=== PATIENT | female | born 1945 | race Caucasian/White ===

== ENCOUNTER 2020-07-12 11:15 | Outpatient (CLI) | payer MEDICARE, SELFPAY ==
--- NOTE | ~2020-07-12 | DEXA_ITS ---
Bone Density Report Name: Sofía Fletcher Age: 74 Sex: Female Ethnicity: White Date of : 1945 Indication: postmenopausal; height loss; prior fracture; hysterectomy; Referring Provider: Fadi Castro Study: Bone densitometry was performed. Exam Date: July 12, 2020 Accession number: [id number] Bone Density: Region BMD T-score Z-score Classification AP Spine (L2, L3, L4) 1.120 0.4 2.7 Normal Femoral Neck (Left) 0.625 -2.0 -0.1 Osteopenia Total Hip (Left) 0.805 -1.1 0.5 Osteopenia Total Hip Bilateral Avg 0.808 -1.1 0.6 Osteopenia Femoral Neck (Right) 0.704 -1.3 0.6 Osteopenia Total Hip (Right) 0.809 -1.1 0.6 Osteopenia World Health Organization criteria for BMD impression classify patients as: Normal (T-score at or above -1.0), Osteopenia (T-score between -1.0 and -2.5), or Osteoporosis (T-score at or below -2.5). 10-year Fracture Risk: FRAX not reported because: Prior hip or vertebral fracture Previous Exams: Region Exam Age BMD T-score BMD Change BMD Change Date g/cm2 vs Baseline vs Previous AP Spine(L2, L3, L4) 07/12/2020 74 1.120 0.4 0.025(2.2%)* 0.059(5.6%)* 02/16/2017 71 1.061 -0.2 -0.034(-3.1%)* -0.034(-3.1%)* 12/10/2014 69 1.095 0.1 Total Hip(Left) 07/12/2020 74 0.805 -1.1 -0.064(-7.4%)* -0.064(-7.4%)* 02/16/2017 71 0.869 -0.6 0.000(0.0%) 0.000(0.0%) 12/10/2014 69 0.869 -0.6 Total Hip(Right) 07/12/2020 74 0.809 -1.1 -0.042(-4.9%)* -0.026(-3.1%) 02/16/2017 71 0.835 -0.9 -0.016(-1.8%) -0.016(-1.8%) 12/10/2014 69 0.851 -0.7 *Denotes significance at 95% confidence level, LSC for AP Spine = 0.022 g/cm2, LSC for Total Hip = 0.027 g/cm2 Clinical Information Provided by Patient: Have had a previous hip or vertebral fracture Has had a low trauma fracture Has used the following medications: Fosamax (i.e. alendronate), Vitamin D, Calcium Has the following medical conditions: Hysterectomy Patient maximum height was 67 Menopause Age: 50 Drinks caffeinated beverages Onset of menses at age 11 Number of children 3 Impression: The patient has low bone mass, based on the Left Femoral Neck T-score. The patient has risk factors, including: previous fracture. The BMD for the Total Hip(Left) decreased, changing by -7.4% since the last DXA exam. Discussion: INCREASED RISK OF FRACTURE DUE TO HISTORY OF FRACTURE. The patient's previous fracture puts the patient at high risk of a future fractu
== END 2020-07-12 11:16 | disposition home or self-care (01) ==
PROVIDERS: PCP Family Medicine; Visit Provider Family Medicine
DX: Z13.820 Encounter for screening for osteoporosis (principal); M85.852 Other specified disorders of bone density and structure, left thigh; M85.851 Other specified disorders of bone density and structure, right thigh
CPT/HCPCS: 77080

== ENCOUNTER 2020-08-05 07:18 | Outpatient (CLI) | payer OTHER, SELFPAY ==
--- NOTE | ~2020-08-05 | US_ITS ---
US right upper quadrant INDICATION: Abdominal pain and diarrhea PROCEDURE: Realtime right upper abdominal ultrasound. COMPARISON: No prior studies for comparison. FINDINGS: The pancreas is normal without focal mass or pancreatic ductal dilation. Liver echotexture is increased, consistent with fatty infiltration. There is normal directional flow in the portal ve in. There are gallstones. No secondary findings to suggest cholecystitis. Common bile duct measures 5 mm . No sonographic Rasmussen's sign. IMPRESSION: 1: Cholelithiasis. 2: Fatty infiltration of the liver. Reviewed, dictated and finalized at location B. 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
== END 2020-08-05 07:19 | disposition home or self-care (01) ==
PROVIDERS: PCP Family Medicine; Visit Provider Family Medicine
DX: R10.9 Unspecified abdominal pain (principal); R19.5 Other fecal abnormalities; K80.20 Calculus of gallbladder without cholecystitis without obstruction; K76.0 Fatty (change of) liver, not elsewhere classified
CPT/HCPCS: 76705

== ENCOUNTER 2020-08-12 06:47 | Outpatient (CLI) | payer OTHER, SELFPAY ==
--- NOTE | ~2020-08-12 | NM_ITS ---
EXAMINATION: NM hepatobiliary wo pharm DATE: 08/12/2020 10:48 INDICATION: Unspecified abdominal pain COMPARISON: Ultrasound dated 08/05/2020 TECHNIQUE: 5.1 mCi Tc-99m mebrofenin (Choletec) was administered intravenously. Scintigraphic images of the abdomen were obtained for one hour. One hour and 4 hour delayed scintigrams were obtained in the anterior and right lateral projections. FINDINGS: There is normal clearance of radiotracer from the blood pool. There is homogeneous tracer u ptake by the liver. Activity progresses to the gallbladder with progressive accumulation of gallblad jack activity through 4 hours. The clearance from the liver is mildly delayed with common bile duct ac tivity accumulating at 25 minutes however the vast majority of hepatic activity has cleared on the 4 hour delayed images. There is however no appreciable bowel activity evident on the 4 hour delayed lionel ges at the majority of activity in the gallbladder. IMPRESSION: 1. Mildly delayed hepatic excretion of activity which accumulates in the gallbladder with no bowel a ctivity through 4 hours. This suggests obstruction either mechanical or functional at the distal comm on bile duct but either relatively recent, partial or intermittent with no decrease in initial hepati c uptake of activity and with no dilation of the gallbladder or intrahepatic biliary ductal dilation on the relatively recent prior ultrasound from 08/05/2020. Patient was also asymptomatic at the time of the study. Dr. Frey discussed these findings with Dr. Castro at 11:30 AM. Could consider furthe r evaluation with MRCP to assess for choledocholithiasis in this patient with known cholelithiasis. Reviewed, dictated and finalized at location A. 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 Mildly delayed hepatic excretion of activity which accumulates in the gallb ladder with no bowel activity through 4 hours. This suggests obstruction either mechanical or functional at the distal common bile duct but either relatively recent, partial or intermittent with no decrease in initial hepatic uptake of a ctivity and with no dilation of the gallbladder or intrahepatic biliary ductal dilation on the relatively recent prior ultrasound from 08/05/2020. Patient was a lso asymptomatic at the time of the study. Dr. Frey discussed these finding s with Dr. Castro at 11:30 AM. Could consider further evaluation with MRCP to assess for choledocholithiasis in this patient with known cholelithiasis.
== END 2020-08-12 06:48 | disposition home or self-care (01) ==
LOC: ANHIMG 06:49
PROVIDERS: PCP Family Medicine; Visit Provider Family Medicine
DX: R10.9 Unspecified abdominal pain (principal)
CPT/HCPCS: 78226; A9537

== ENCOUNTER 2020-08-27 07:22 | Outpatient (CLI) | payer OTHER, SELFPAY ==
--- NOTE | ~2020-08-27 | MR_ITS ---
EXAMINATION: MR MRCP wo/w con/w 3D wo ind DATE: 08/27/2020 09:30 INDICATION: Right upper quadrant abdominal pain with abnormal hepatobiliary scan. TECHNIQUE: Magnetic resonance imaging (MRI) of the abdomen was performed without and with 15 mL Multi yenni intravenous contrast. Sequences included coronal T2-weighted SS-FSE, coronal T2-weighted FS SS- FSE, coronal T2-weighted FS FIESTA, axial T2-weighted FS FIESTA, axial T2-weighted FIESTA, sagittal T 2-weighted SS-FSE, axial T1-weighted dual-echo FSPGR, axial T2-weighted SS-FSE, axial T1-weighted LAV A, axial T2-weighted STIR FSE. Thick-slab T2-weighted FRFSE-XL images were obtained for magnetic reso nance cholangiopancreatography (MRCP). Rotating maximum intensity projection 3-D reconstructions of t he volumetric data were created by the technologist. Postcontrast sequences included a time course of axial T1-weighted LAVA. COMPARISON: None. FINDINGS: ABDOMEN MRI: Elevation of the right hemidiaphragm. Heart size is normal. No pericardial or pleural effusion. Liver , spleen, pancreas, bilateral adrenal glands and right kidney are normal. 5 mm T2 hyperintense nonenh ancing cysts the upper pole of the left kidney. There are several low signal intensity gallstones at the dependent fundus of the otherwise normal-appearing gallbladder. There are few scattered colonic d iverticula without adjacent inflammatory change to suggest diverticulitis. No bowel obstruction. Norm al appendix. No pathologically enlarged abdominal lymphadenopathy. Mild levocurvature and kyphosis ce ntered at a chronic L1 compression fracture with 40% right anterior vertebral body height loss. ABDOMEN MRCP: No intrahepatic biliary ductal dilation. The common hepatic duct is dilated to 9-10 mm . The proximal common bile duct tapers to 2 mm where the duct makes a sharp 90 degree turn before increase in calib er to 6 mm in the mid common bile duct tapering smoothly distally without evident distal obstructing stone or mass. There is pancreas divisum with normal caliber main pancreatic duct draining to a separ ate minor papilla and with the ventral duct draining the uncinate process of the pancreas extending t o the major papilla. No evident choledocholithiasis. IMPRESSION: 1. Cholelithiasis but without evident choledocholithiasis or obstructing mass. There is a focal narro wing in the proximal common bile duct immediately following the confluence with the cystic duct which corresponds to the site of a sharp 110 degrees change in course of the duct. This likely results in a low-grade obstruction accounting for the findings on the prior HIDA scan. 2. Pancreas divisum. Reviewed, dictated and finalized at location B. CROSS WORKER IMPRESSION: 1. Cholelithiasis but without evident choledocholithiasis or obstructing mass. There is a focal narrowing in the proximal common bile duct immediately followi ng the confluence with the cystic duct which corresponds to the site of a sharp 110 degrees change in course of the duct. This likely results in a low-grade o bstruction accounting for the findings on the prior HIDA scan. 2. Pancreas divisum.
[2020-08-27 08:44] LABS: Estimated Glomerular Filt Rate > 60
== END 2020-08-27 07:23 | disposition home or self-care (01) ==
PROVIDERS: PCP Family Medicine; Visit Provider Physician Assistant
DX: R10.11 Right upper quadrant pain (principal); R94.8 Abnormal results of function studies of other organs and systems; K80.20 Calculus of gallbladder without cholecystitis without obstruction; Q45.3 Other congenital malformations of pancreas and pancreatic duct
CPT/HCPCS: 74183; 76376; A9577

== ENCOUNTER → 2020-09-03 02:49 | Outpatient (CLI) | payer OTHER, SELFPAY ==
[2020-09-03 22:47] LABS: SARS-CoV-2 RNA PCR Negative
== END ==
PROVIDERS: PCP Family Medicine; Visit Provider Surgery
DX: Z01.812 Encounter for preprocedural laboratory examination (principal); Z20.822 Contact with and (suspected) exposure to COVID-19
CPT/HCPCS: C9803; U0003; U0005

== ENCOUNTER 2020-09-03 13:26 | Outpatient (CLI) | payer OTHER, SELFPAY ==
--- NOTE | 2020-09-03 13:30 | ECG_ITS ---
Measurements Intervals [place] Rate: 82 P: 42 DE: 139 QRS: 9 QRSD: 76 T: 14 QT: 326 QTc: 382 Interpretive Statements SINUS RHYTHM LOW QRS VOLTAGE IN PRECORDIAL LEADS RSR' IN V1 OR V2, CONSIDER RIGHT VENTRICULAR HYPERTROPHY OR RIGHT VCD BORDERLINE T WAVE ABNORMALITY- ANT/INF LEADS BASELINE ARTIFACT- I, II, III, AVR, AVL, AVF BORDERLINE ECG Electronically Signed On 09-03-2020 13:57:14 WIRE STOCKKEEPER by Bhupinder Gonzalez D.O.
[2020-09-03 14:03] LABS: Alanine Aminotransferase 27 U/L (4-35); Albumin Level 4.2 g/dL (3.5-5.1); Alkaline Phosphatase 71 U/L (38-126); Amylase 89 U/L (30-110); Aspartate Amino Transferase 27 U/L (14-36); Bilirubin,Total 0.4 mg/dL (0.2-1.3); Lipase 169 U/L (23-300)
== END 2020-09-03 13:27 | disposition home or self-care (01) ==
LOC: ANHSURGERY 13:28
PROVIDERS: PCP Family Medicine; Visit Provider Surgery
DX: Z01.818 Encounter for other preprocedural examination (principal); K80.20 Calculus of gallbladder without cholecystitis without obstruction; I10 Essential (primary) hypertension; R94.31 Abnormal electrocardiogram [ECG] [EKG]
CPT/HCPCS: 36415; 80076; 82150; 83690; 86850; 86900; 86901; 93005

== ENCOUNTER 2020-09-06 01:45 | Day surgery (SDC) | payer OTHER, SELFPAY ==
[2020-09-02 13:39] VITALS: BMI 29.0
--- NOTE | 2020-09-05 15:35 | WPDANESEPPF ---
Anes - Initial Pre Proc Eval Procedure: Operation Date: 09/06/20 13:00 Proposed Procedures p Laparoscopic Cholecystectomy, Possible Open - Vinay Rosas DO Date/Time: 09/05/20 15:35 Surgeon: Vinay Rosas DO Pre Op Diagnosis: systemic cholelithiasis Patient Data Age: 74 Gender: F Height: 1.65 m Weight: 78.99 kg Allergies Allergy/AdvReac Type Severity Reaction Status Date / Time adhesive tape Allergy Severe RASH Verified 09/06/20 11:17 Home Medications Medication Instructions Recorded Confirmed Type alendronate 70 mg tablet 70 mg PO WEEKLY #12 tablet 04/22/20 09/06/20 Rx aspirin [Adult Low Dose Aspirin] 81 mg PO DAILY 09/02/20 09/06/20 History calcium carbonate-vitamin D2 1 tablet PO DAILY 09/02/20 09/06/20 History [Calcium + Vitamin D] lisinopril 20 mg PO QPM 09/02/20 09/06/20 History multivitamin,zl-tdyl-dkcygoyu 1 tablet PO DAILY 09/02/20 09/06/20 History [Complete Multivitamin] pravastatin 40 mg PO QPM 09/02/20 09/06/20 History Patient hx anesthesia problems: none Family hx anesthesia problems: none PMFSH Past Medical History Medical History Depression HLD (hyperlipidemia) HTN (hypertension) IFG (impaired fasting glucose) Osteoporosis Surgical History Surgical History History of partial hysterectomy History of tonsillectomy History of tubal ligation Family History Family History Father Family history of lung disease Sibling Patient's sister is in good health Patient's brother is in good health Mother Heart disease Hypertension Daughter Diabetes mellitus Social History Social History Smoking status: Never smoker Second hand tobacco smoke exposure: No Alcohol intake: never Substance use: never Substance use type: does not use Living arrangements: with family Gender identity (if verbalized by the patient): Female Spiritual care concerns: No Anes - Eval Final PreProcedure Day of Procedure 09/05/20 15:35 Patient weight: overweight Heart: regular rate and rhythm Lungs: clear to auscultation and normal air movement Airway: Mallampati scale class II Neurological: alert and oriented Last oral intake: >/= 8 hours ASA classification: II Emergent: no Anesthetic plan: proceed Anesthesia type and monitoring: general ETT Informed Consent: The patient's anesthetic plan and its attendant risks and benefits were discussed with the patient/family/POA. Questions were solicited and answers provided to the satisfaction of the patient/family/POA.
[2020-09-06] VITALS (7 sets, daily range): BP systolic 135–157; BP diastolic 65–78; PULSE 56–93; RESP 13–20; TEMP 36–37.7; O2SAT 94–100
[2020-09-06] MEDS: LACTATED RINGERS 1,000 ML 30 ML IV CONT ×2 (11:46→14:14)
--- NOTE | 2020-09-06 11:54 | WPDHPUPDATE1 ---
History and Physical Update Update Date/Time: 09/06/20 11:54 History and Physical has been reviewed, including an updated exam of the patient. There are NO changes in the patient's condition. Risks, benefits, and alternatives have been discussed and questions answered. Patient agrees to proceed with procedure.
[2020-09-06] MEDS: ACETAMINOPHEN 500 MG TABLET 1000 MG PO (12:04)
[2020-09-06] MEDS: KETOROLAC 15 MG/ML VIAL (*BKC) IV PUSH (12:04)
--- NOTE | 2020-09-06 13:13 | SUR.PREOP ---
Up to bathroom.
[2020-09-06] MEDS: ceFAZolin 2 GM/D5W 50 ML 2 GM/50 ML BAG IVPB (13:17)
[2020-09-06] MEDS: BUPIVACAINE/EPINEPHRINE 0.5% 30 ML VIAL INFILTRATE (13:42)
--- NOTE | 2020-09-06 14:14 | PM.PROC ---
Procedure Note - Detailed Date of procedure: 09/06/20 Pre-op diagnosis: Symptomatic cholelithiasis Post-op diagnosis: same Procedure performed: Laparoscopic Cholecystectomy Description of procedure: Procedure as well as risks, benefits, and alternatives were discussed with patient. Written consent was obtained and placed in chart prior to procedure. The patient was brought back to surgical suite. Patient was placed in supine position on operating table. Time-out was done to confirm patient and procedure. Patient was then intubated by the anesthesia department. Abdomen was prepped and draped in sterile fashion using chlorhexidine prep. 0.5% bupivacaine with epinephrine was infiltrated at each site of incision. An 11 millimeter vertical incision was made at the inferior portion of the umbilicus using a 15 blade scalpel. Blunt dissection was carried down to the linea alba. The linea alba was then incised using a 15 blade scalpel. The peritoneum was then bluntly entered. An 11 millimeter trocar was inserted and cabon dioxied insuflation was used to create a pneumoperitoneum. The camera was inserted and the abdomen was inspected. The patient was placed in reverse Trendelenberg position and rotated slightly to the left. A 5 millimeter incision was made in the epigastric region, and a 5 millimeter trocar was inserted under direct visualization. Two 5 millimeter incisions were made in the right upper quadrant, and two 5 millimeter trocars were inserted under direct visualization. The gallbladder was identified and grasped at the fundus and retracted superiorly. It was then grasped at the infundibulum retracted laterally. Careful dissection around the neck of the gallbladder was performed using blunt dissection with a [place] grasper and hook electrocautery. The cystic duct was identified, and a window was created behind it. The cystic artery was also identified and a window was created behind it. The critical view of safety was identified, visualizing the cystic duct running directly into the neck of the gallbladder, and the cystic artery running directly into the wall of the gallbladder. A 5 millimeter clip chemistry intern was then used to place 2 clips proximally and 1 clip distally on both the cystic duct and cystic artery. They were then both transected using endoscopic scissors. Once safely away from the jack hepatitis, the gallbladder was dissected free from the liver bed using hook electrocautery. Hemostasis was achieved along the way. The gallbladder was removed completely and then removed through the subxiphoid port. The liver bed was then inspected. Hemostasis appeared adequate, and our clips appeared secure. The area was gently irrigated with sterile saline. No other abnormalities were seen. The patient was flattened out in bed, and 1 final inspection was made around the abdominal cavity. The ports were then removed under direct visualization, the camera was removed, and the pneumoperitoneum was released. The fascia of the umbilical incision was approximated using an 0 Vicryl sxqrgu-nq-hspoe suture. The skin of the incisions was approximated using 4-0 Monocryl subcuticular sutures. Exofin glue was applied on top. The patient was then awakened from anesthesia, extubated, and transferred to recovery. Anesthesia: GETA and local (0.5% bupivicaine with epinephrine) Surgeon: Vinay Rosas DO Estimated blood loss (mL): 10 Pathology: yes Complications: No immediate complications Condition: stable Disposition: same day Findings: Laparoscopic cholecystectomy was performed. Patient's gallbladder did have a few pericholecystic adhesions. There were a few small stones in the infundibulum and neck of the gallbladder. The cystic duct appeared normal in size. No other intra-abdominal abnormalities were noted. The gallbladder was removed and sent to the lab for pathology. As the upper part of the gallbladder was removed from the liver bed there was a
== END 2020-09-06 16:30 | disposition home or self-care (01) ==
PROVIDERS: PCP Family Medicine; Visit Provider Surgery
PROC: 0FT44ZZ Resection of Gallbladder, Percutaneous Endoscopic Approach (ICD-10-PCS; CPT 47562; principal; 2020-09-06 13:00)
DX: K80.10 Calculus of gallbladder with chronic cholecystitis without obstruction (principal); I10 Essential (primary) hypertension; E78.5 Hyperlipidemia, unspecified; M81.0 Age-related osteoporosis without current pathological fracture; F32.9 Major depressive disorder, single episode, unspecified; Z79.82 Long term (current) use of aspirin
CPT/HCPCS: 47562; 36415; 80076; 82150; 83690; 86850; 86900; 86901; 88304; 93005; A9270; C9803; J0690; J1100; J1885; J2405; J2704; J2710; J3010; J7120; U0003; U0005

== ENCOUNTER 2023-01-05 12:41 | Outpatient (CLI) | payer OTHER, SELFPAY ==
--- NOTE | ~2023-01-05 | DEXA_ITS ---
Bone Density Report Name: SASKIA COLUNGA Age: 77 Sex: Female Ethnicity: White Date of : 1945 Indication: osteopenia; parental hip fracture; height loss; prior fracture; postmenopausal Referring Provider: GABRIELE SHERWOOD Study: Bone densitometry was performed. Exam Date: January 05, 2023 Accession number: [id number] Bone Density: Region BMD T-score Z-score Classification AP Spine(L2, L3, L4) 1.083 0.0 2.5 Normal Femoral Neck (Left) 0.655 -1.7 0.3 Osteopenia Total Hip (Left) 0.777 -1.4 0.4 Osteopenia Femoral Neck (Right) 0.724 -1.1 1.0 Osteopenia Total Hip (Right) 0.807 -1.1 0.7 Osteopenia Total Hip Mean 0.792 -1.3 0.6 Osteopenia World Health Organization criteria for BMD impression classify patients as: Normal (T-score at or above -1.0), Osteopenia (T-score between -1.0 and -2.5), or Osteoporosis (T-score at or below -2.5). 10-year Fracture Risk: FRAX not reported because: Prior hip or vertebral fracture Previous Exams: Region Exam Age BMD T-score BMD Change BMD Change Date g/cm2 vs Baseline vs Previous AP Spine (L2-L4) 01/05/2023 77 1.083 0.0 -0.012 (-1.1%) -0.036 (-3.2%) 07/12/2020 74 1.120 0.4 0.025 (2.2%)* 0.059 (5.6%)* 02/16/2017 71 1.061 -0.2 -0.034 (-3.1%) -0.034 (-3.1%) 12/10/2014 69 1.095 0.1 Total Hip(Left) 01/05/2023 77 0.777 -1.4 -0.092 (-10.6% -0.028 (-3.5%) 07/12/2020 74 0.805 -1.1 -0.064 (-7.4%) -0.064 (-7.4%) 02/16/2017 71 0.869 -0.6 0.000 (0.0%) 0.000 (0.0%) 12/10/2014 69 0.869 -0.6 Total Hip(Right) 01/05/2023 77 0.807 -1.1 -0.043 (-5.1%) -0.002 (-0.2%) 07/12/2020 74 0.809 -1.1 -0.042 (-4.9%) -0.026 (-3.1%) 02/16/2017 71 0.835 -0.9 -0.016 (-1.8%) -0.016 (-1.8%) 12/10/2014 69 0.851 -0.7 *Denotes significance at 95% confidence level, LSC for AP Spine = 0.022 g/cm2, LSC for Total Hip = 0.027 g/cm2 Clinical Information Provided by Patient: Have had a previous hip or vertebral fracture Has had a low trauma fracture Parent has had a hip fracture Has used the following medications: Fosamax (i.e. alendronate), Vitamin D, Calcium Patient maximum height was 67 Menopause Age: 50 Drinks caffeinated beverages Onset of menses at age 11 Number of children 3 Impression: The patient has low bone mass, based on the Left Femoral Neck T-score. The patient has risk factors, including: parental hip fracture, previous fracture. The BMD for the AP
== END 2023-01-05 12:42 | disposition home or self-care (01) ==
PROVIDERS: PCP Family Medicine; Visit Provider Physician Assistant
DX: M81.0 Age-related osteoporosis without current pathological fracture (principal); M85.852 Other specified disorders of bone density and structure, left thigh; M85.851 Other specified disorders of bone density and structure, right thigh
CPT/HCPCS: 77080

== ENCOUNTER 2023-01-07 12:54 | Outpatient (CLI) | payer OTHER, SELFPAY ==
--- NOTE | ~2023-01-07 | CT_ITS ---
EXAMINATION: CTA abdomen pelvis DATE: 01/07/2023 13:21 INDICATION: Aortic ectasia TECHNIQUE: Computed tomographic angiography (CTA) of the abdomen and pelvis was performed with 100 mL Omnipaque-350 intravenous contrast. Maximum intensity projection 3D-reconstructions of the aorta and other arteries were constructed by the technologist on a separate workstation. The dose-length produ ct (DLP) was 751.00 mGy-cm. Automated exposure control and iterative reconstruction technique were em ployed. COMPARISON: None. FINDINGS: There is ectasia of the abdominal aorta without aneurysm or dissection. The celiac axis, oakes perior mesenteric artery, and inferior mesenteric artery are normal at their origins. There are singl e renal arteries bilaterally. The common and external iliac arteries are unremarkable. There is mild atherosclerosis without hemodynamically significant stenosis of the internal iliac arteries. There are changes of cholecystectomy. Minimal dependent atelectasis is present in the lung bases. The heart size is normal. There is a small sliding hiatal hernia. The liver, spleen, pancreas, and adren al glands are normal. The kidneys are unremarkable. No pathologically enlarged abdominal or pelvic ly mph nodes are identified. No free intraperitoneal gas or evidence of bowel obstruction. Colonic diver ticulosis is present without evidence of diverticulitis. There is a chronic L1 compression fracture. A fat-containing umbilical hernia is noted. IMPRESSION: 1. Ectasia of the abdominal aorta without aneurysm or dissection. Reviewed, dictated and finalized at location L.
== END 2023-01-07 12:55 | disposition home or self-care (01) ==
PROVIDERS: PCP Family Medicine; Visit Provider Physician Assistant
DX: I77.810 Thoracic aortic ectasia (principal)
CPT/HCPCS: 74174; Q9967

== ENCOUNTER 2024-01-17 12:31 | Outpatient (CLI) | payer OTHER, SELFPAY ==
--- NOTE | ~2024-01-17 | CT_ITS ---
CTA chest abdomen pelvis Ordering provider: Adan Miranda PA-C History: . I77.811 - Abdominal aortic ectasia . Comparison: None. Technique: CT angiogram chest, abdomen and pelvis was performed following timed intravenous injection of contrast. Thin slice axial images and reformatted coronal images were obtained. Three dimensional reformatted images of the chest were also obtained using a [employer] workstation. 100 mL Omnipaque 350 was given IV. Radiation reduction technique utilized. 1255.17 mGy-cm. FINDINGS: CHEST: --THORACIC AORTA: Mild atheromatous disease. No aneurysm, dissection or mediastinal hematoma. The asc ending aorta measures 3.5 cm. --GREAT VESSELS: Normal as visualized. --PULMONARY ARTERIES: No pulmonary embolus. --VISUALIZED THORACIC INLET: Normal. --MEDIASTINUM: Coronary arteries: Mild atheromatous disease. Heart/other: The heart is not enlarged. Lymph nodes: No mediastinal or hilar adenopathy. --LUNGS: Dependent atelectatic changes. No pulmonary nodules or masses. No infiltrates or effusions. No pneumo thorax. --MUSCULOSKELETAL: Superficial soft tissues: The superficial soft tissues are normal. Bones: Age appropriate degenerative changes of the spine. ABDOMEN/PELVIS: --MUSCULOSKELETAL: Bones: Age appropriate degenerative changes of the spine. Compression fracture of L1. Superficial soft tissues: The superficial soft tissues are normal. --UPPER ABDOMINAL ORGANS: Liver: Normal. Gallbladder: Status post cholecystectomy. Spleen: Normal. Stomach/duodenum: Sliding hiatus hernia. Duodenal diverticulum is seen. Pancreas: Normal. Slightly prominent pancreatic duct. Adrenals: Normal. Kidneys: Normal. --PELVIC ORGANS: The bladder is normal. No bladder stones. --BOWEL AND MESENTERY: Colon: No evidence of diverticulitis. Normal appendix. Small Bowel: Normal. No obstruction. Peritoneum/mesentery: No free air or free fluid. No mesenteric lymphadenopathy. --RETROPERITONEUM: No retroperitoneal lymphadenopathy. --ARTERIES: ABDOMINAL AORTA: Mild atheromatous disease. No aneurysm or dissection. The aorta measures 2.5 cm. RENAL ARTERIES: Atherosclerotic changes. CELIAC AXIS: Atherosclerotic changes. SMA: Atherosclerotic changes with about 50% narrowing. YONY: Normal. ILIAC AND VISUALIZED FEMORAL ARTERIES: Normal. MESENTERIC ARTERIES: Normal. IMPRESSION: CHEST: 1. The ascending aorta measures 3.5 cm. No definite aneurysmal dilatation seen. 2. No acute cardiopulmonary pathology. ABDOMEN/PELVIS: 1. No acute abdominal process. 2. Compression fracture of L1. 3. Atherosclerotic changes at the origin of the superior mesenteric artery with narrowing about 50%. Reviewed, dictated and finalized at location A. IMPRESSION: CHEST: 1. The ascending aorta measures 3.5 cm. No definite aneurysmal dilatation seen . 2. No acute cardiopulmonary pathology. ABDOMEN/PELVIS: 1. No acute abdominal process. 2. Compression fracture of L1. 3. Atherosclerotic changes at the origin of the superior mesenteric artery wit h narrowing about 50%.
[2024-01-17 13:16] LABS: Estimated Glomerular Filt Rate > 60
== END 2024-01-17 12:32 ==
LOC: MICIMG 12:33
PROVIDERS: PCP Physician Assistant; Visit Provider Physician Assistant
DX: I77.810 Thoracic aortic ectasia (principal)
CPT/HCPCS: 71275; 74174; Q9967

== ENCOUNTER 2025-06-25 10:52 | Outpatient (CLI) | payer OTHER, SELFPAY ==
--- NOTE | ~2025-06-25 | DEXA_ITS ---
Bone Density Report Name: SASKIA COLUNGA Age: 79 Sex: Female Ethnicity: White Date of : 1945 Indication: osteopenia; parental hip fracture; height loss; prior fracture; Referring Provider: JIMMIE OSSA Study: Bone densitometry was performed. Exam Date: June 25, 2025 Accession number: [id number] Bone Density: Region BMD T-score Z-score Classification AP Spine(L3, L4) 0.991 -1.0 1.7 Normal Femoral Neck (Left) 0.646 -1.8 0.4 Osteopenia Total Hip (Left) 0.752 -1.6 0.4 Osteopenia Femoral Neck (Right) 0.676 -1.6 0.6 Osteopenia Total Hip (Right) 0.719 -1.8 0.1 Osteopenia Total Hip Mean 0.735 -1.7 0.3 Osteopenia World Health Organization criteria for BMD impression classify patients as: Normal (T-score at or above -1.0), Osteopenia (T-score between -1.0 and -2.5), or Osteoporosis (T-score at or below -2.5). 10-year Fracture Risk: FRAX not reported because: Prior hip or vertebral fracture Previous Exams: Region Exam Age BMD T-score BMD Change BMD Change Date g/cm2 vs Baseline vs Previous AP Spine (L3-L4) 06/25/2025 79 0.991 -1.0 -0.084 (-7.9%) -0.038 (-3.7%) 01/05/2023 77 1.029 -0.7 -0.046 (-4.3%) -0.062 (-5.6%) 07/12/2020 74 1.091 -0.1 0.016 (1.4%) 0.058 (5.6%)* 02/16/2017 71 1.033 -0.6 -0.042 (-3.9%) -0.042 (-3.9%) 12/10/2014 69 1.075 -0.2 Total Hip(Left) 06/25/2025 79 0.752 -1.6 -0.117 (-13.4% -0.025 (-3.2%) 01/05/2023 77 0.777 -1.4 -0.092 (-10.6% -0.028 (-3.5%) 07/12/2020 74 0.805 -1.1 -0.064 (-7.4%) -0.064 (-7.4%) 02/16/2017 71 0.869 -0.6 0.000 (0.0%) 0.000 (0.0%) 12/10/2014 69 0.869 -0.6 Total Hip(Right) 06/25/2025 79 0.719 -1.8 -0.132 (-15.5% -0.088 (-11.0% 01/05/2023 77 0.807 -1.1 -0.043 (-5.1%) -0.002 (-0.2%) 07/12/2020 74 0.809 -1.1 -0.042 (-4.9%) -0.026 (-3.1%) 02/16/2017 71 0.835 -0.9 -0.016 (-1.8%) -0.016 (-1.8%) 12/10/2014 69 0.851 -0.7 *Denotes significance at 95% confidence level, LSC for AP Spine = 0.022 g/cm2, LSC for Total Hip = 0.027 g/cm2 Clinical Information Provided by Patient: Have had a previous hip or vertebral fracture Has had a low trauma fracture Parent has had a hip fracture Has used the following medications: Fosamax (i.e. alendronate), Vitamin D, Calcium Patient maximum height was 67 Menopause Age: 50 Drinks caffeinated beverages Onset of menses at age 11 Number of children 3 Impression: The patient has low bone mass, based on the Right Total Hip T-score. The patient has risk factors, including: parental hip fracture, previous fracture. The BMD for the AP Spine (L3-L4) decreased, changing by -3.7% since the last DXA exam. The BMD for the Total Hip(Right) decreased, changing by -11.0% since the last DXA exam. Discussion: INCREASED RISK OF FRACTURE DUE TO HISTORY OF FRACTURE. The patient's previous fracture puts the patient at high risk of a future fracture. In untreated patients, the risk of osteoporotic fracture increases approximately two-fold for each 1.0 SD decrease in T-score. Low bone density is not the only risk factor for fracture; also consider factors such as patient's age, frailty or poor health, risk of falling, risk of injury, previous osteoporotic fracture, family history of osteoporosis, cigarette smoking, low body weight, etc. Not everyone with a low trauma fracture has osteoporosis; osteomalacia and other metabolic bone disorders should also be considered. Patients who have osteoporosis should be evaluated for specific diseases and conditions (secondary causes) that may cause or contribute to bone loss and fracture risk. National Osteoporosis Foundation (NOF) recommends pharmacologic intervention for patients with a prior hip or vertebral fracture regardless of BMD T-score. The patient should follow a healthful lifestyle (good nutrition with adequate calcium and vitamin D, and appropriate weight-bearing exercise). Follow-Up: Consider a repeat BMD and Vertebral Fracture Assessment (VFA) exam in 2 years or sooner if medically necessary, to reassess this patient's status. Reported by: YASMINE on 06/27/2025 7:55:00 AM. Reviewed, dictated and finalized at location A.
--- OUTSIDE RECORDS SUMMARY | 2025-06-25 11:29 | XMS_ITS | Clinical Summary ---
[facility] Organization [facility] Address [address] [place] [address] Care Team Providers Care Chef Under Name Role Phone Fadi Castro MD Primary Care Provider Allergies Active Allergy Reactions Criticality Noted Date Comments Adhesive Rash Medium 12/26/2023 Medications naproxen (NAPROSYN) 500 mg tablet Take 1 tablet (500 mg total) by mouth 2 (two) times a day with meals 30 tablet 12/26/2023 Active lidocaine (LIDODERM) 5 % Place 1 patch on the skin daily for 14 days Remove & discard patch within 12 hours or as directed by MD. 14 patch 12/26/2023 Active methocarbamoL (ROBAXIN) 500 mg tablet Take 1 tablet (500 mg total) by mouth 2 (two) times a day 20 tablet 12/26/2023 Active HYDROcodone-marya taminophen (NORCO) 5-325 mg per tabletIndicatio ns:Pain Take 1 tablet by mouth every 4 (four) hours as needed for pain Do not exceed 8 tablets/day. 6 tablet 02/19/2025 Active Social History Tobacco Use Types Packs/Day Years Used Date Smoking Tobacco: Never Assessed Personal Safety Answer Date Recorded Have you ever been in or are you currently in a harmful physical or emotional relationship or is someone making you feel afraid or unsafe? 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 Gender Identity Not on file Sexual Orientation Not on file Last Filed Vital Signs Vital Sign Reading Time Taken Comments Blood Pressure 153/65 02/19/2025 5:55 AM CDT Pulse 65 02/19/2025 5:55 AM CDT Temperature 36.6 C (97.9 F) 02/19/2025 4:21 AM CDT Respiratory Rate 16 02/19/2025 5:55 AM CDT Oxygen Saturation 96% 02/19/2025 5:55 AM CDT Inhaled Oxygen Concentration - - Weight 74.7 kg (164 lb 10.9 oz) 02/19/2025 4:21 AM CDT Height 170.2 cm (5' 7) 02/19/2025 4:21 AM CDT Body Mass Index 25.79 02/19/2025 4:21 AM CDT Plan of Treatment Health Maintenance Due Date Last Done Comments Depression Screening 1945 Fall Risk Assessment 1945 Hepatitis C Screening 1945 Osteoporosis Screening-Bone Density Scan 1945 Hepatitis B Screening 09/26/1965 Well Visit 65+ 09/26/2012 Covid-19 Vaccine (2024- 6 season) 2025 04/17/2023, 05/20/2022, 06/19/2021, Additional history exists Influenza Vaccine (#1) 2025 , 04/18/2022, 04/12/2021, Additional history exists DTaP/Tdap/Td Vaccine (2 - Td or Tdap) 02/20/2033 02/20/2023 Pneumococcal vaccine 65+ Completed 023, 06/05/2016, 05/23/2015 Zoster Vaccine Completed 04/09/2023, 02/06/2023 Insurance [facility] [address] [place], [place] [id number] [place] [address] Care Teams Chef Under Relationship Specialty Start Date End Date Fadi Castro MD [address] [facility] [address] [place], [place] [id number] PCP - General 05/30/20
== END 2025-06-25 10:53 | disposition home or self-care (01) ==
PROVIDERS: PCP Family Medicine; Visit Provider Physician Assistant
DX: M81.0 Age-related osteoporosis without current pathological fracture (principal); M85.852 Other specified disorders of bone density and structure, left thigh; M85.851 Other specified disorders of bone density and structure, right thigh
CPT/HCPCS: 77080